=== PATIENT | female | born 1960 | race Caucasian/White ===

== ENCOUNTER 2023-11-19 15:49 | Emergency (ER) | payer BC ==
[~2023-11-19] VITALS: Ht 165.1 cm; Wt 79.8 kg
[2023-11-19 16:23] VITALS: BP_SYST 122; PULSE 66; RESP 22; TEMP 98.3; O2SAT 98
[2023-11-19] MEDS ORDERED: HYDR-3927 PO (20:25)
[2023-11-19] MEDS ORDERED: IBUP-1971 PO (20:25)
[2023-11-19] MEDS ORDERED: HYDROcodone/ACETAMIN 10-325 MG TAB PO ONE (20:30)
[2023-11-19] MEDS ORDERED: cefTRIAXone 1 GM VIAL IM ONE (20:30)
[2023-11-19] MEDS ORDERED: CEPH-548 PO (20:30)
[2023-11-19] MEDS ORDERED: LIDOCAINE 1%, 20 ML MDV 20 ML ONE (20:38)
[2023-11-19] MEDS ORDERED: LIDOCAINE 1% 10 MG/ML, 20 ML MDV INJ ONE (20:45)
== END 2023-11-19 21:36 | disposition home or self-care (01) ==
LOC: SED 15:49
DX: M70.42 Prepatellar bursitis, left knee (principal); Z79.899 Other long term (current) drug therapy; Y93.89 Activity, other specified
CPT/HCPCS: 99283; 29505; 73564; 96372; J0696; J2001